=== PATIENT | female | born 1990 | race American Indian/Alaskan Native ===

== ENCOUNTER 2021-06-26 12:12 | Emergency (ER) | payer MEDICAID ==
[2021-06-26] MEDS ORDERED: ONDANSETRON 4 MG ODT TAB PO ONE (18:56)
[2021-06-26] MEDS ORDERED: IBUPROFEN 800 MG TAB PO ONE (18:57)
--- NOTE | 2021-06-26 19:02 | Emergency Department Report ---
ED Seizure HPI - General Chief Complaint: Seizure Stated Complaint: SEIZURE/CHEST PAIN Time Seen by Provider: 06/26/21 18:55 Source: patient, EMS Mode of arrival: Stretcher Limitations: No Limitations - History of Present Illness Initial Comments: Patient is a 31-year-old female with history of seizures brought in by EMS after having isolated seizure today. She also reports sensation of palpitations behind her sternum as well as generalized abdominal pain with an episode of nausea and vomiting. She is on Keppra which she states she takes as prescribed. - Related Data Allergies Allergy/AdvReac Type Severity Reaction Status Date / Time No Known Allergies Allergy Unverified 06/26/21 12:30 ED Review of Systems ROS: Stated complaint: SEIZURE/CHEST PAIN Other details as noted in HPI Comment: All other systems reviewed and negative Constitutional: denies: chills, fever Respiratory: denies: cough, shortness of breath, wheezing Cardiovascular: palpitations Endocrine: no symptoms reported Gastrointestinal: abdominal pain, nausea, vomiting Musculoskeletal: denies: back pain, joint swelling, arthralgia Skin: denies: rash, lesions Neurological: denies: headache, weakness, paresthesias Psychiatric: denies: anxiety, depression ED Physical Exam - General Limitations: No Limitations General appearance: alert, in no apparent distress - Head Head exam: Present: atraumatic, normocephalic - Respiratory Respiratory exam: Present: normal lung sounds bilaterally. Absent: respiratory distress - Cardiovascular Cardiovascular Exam: Present: regular rate, normal rhythm. Absent: systolic murmur, diastolic murmur, rubs, gallop - GI/Abdominal GI/Abdominal exam: Present: soft, normal bowel sounds. Absent: distended, tenderness - Rectal Rectal exam: Present: deferred - Neurological Exam Neurological exam: Present: alert, oriented X3, CN II-XII intact - Psychiatric Psychiatric exam: Present: normal affect, normal mood - Skin Skin exam: Present: warm, dry, intact, normal color ED Course Vital Signs 06/26/21 12:17 Temperature 98.4 F Pulse Rate 114 H Respiratory 18 Rate Blood Pressure 154/96 [Left] O2 Sat by Pulse 98 Oximetry ED Medical Decision Making - Lab Data Result diagrams: 06/26/21 19:08 06/26/21 19:08 - Medical Decision Making CBC, CMP, troponin and urinalysis grossly unremarkable. EKG normal with rate of 81. Incidental positive UPT. There is no protein in the urine. Blood pressure 150s over 90s. Eclampsia unlikely. Patient stable for discharge home with return precautions. Critical care attestation.: If time is entered above; I have spent that time in minutes in the direct care of this critically ill patient, excluding procedure time. ED Disposition Clinical Impression: Seizure, Palpitations, Generalized abdominal pain, Positive urine test Disposition: 01 HOME / SELF CARE / HOMELESS Is pt being admited?: No Does the pt Need Aspirin: No Condition: Stable Instructions: Seizure, Adult, [id number] Time of Disposition: 20:51
[2021-06-26 19:45] LABS: Alanine Aminotransferase 20 units/L (7-56); Albumin 4.3 g/dL (3.9-5); BUN/Creatinine Ratio 8; Bilirubin,Direct < 0.2 mg/dL (0-0.2); Blood Urea Nitrogen 5 mg/dL (7-17); Calcium 9.5 mg/dL (8.4-10.2); Hemolysis Index 0
[2021-06-26 19:47] LABS: Basophils % (Auto) 0.4 % (0.0-1.8); Eosinophils # (Auto) 0.3 K/mm3 (0.0-0.4); Hematocrit 30.7 % (30.3-42.9); Lymphocytes % (Auto) 31.7 % (13.4-35.0); Mean Corpuscular HGB Conc 33 % (30-34); Mean Corpuscular Volume 71 fl (79-97); Monocytes # (Auto) 0.6 K/mm3 (0.0-0.8); Monocytes % (Auto) 9.4 % (0.0-7.3); Platelet Count 248 K/mm3 (140-440)
[2021-06-26 19:55] LABS: Bilirubin,Urine NEG (Negative); Blood,Urine NEG (Negative); Color,Urine Yellow (Yellow); Mucus,Urine FEW /HPF; Protein,Urine <15 mg/dL mg/dL (Negative); RBC,Urine < 1.0 /HPF (0.0-6.0); Urobilinogen,Urine < 2.0 mg/dL (<2.0)
[2021-06-26 20:30] LABS: HCG Qualitative,Urine Positive (Negative)
[2021-06-26 21:18] VITALS: BP 152/94
--- NOTE | 2021-06-27 10:14 | Electrocardiograph Report ---
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
== END 2021-06-26 20:55 | disposition home or self-care (01) ==
LOC: ED 12:12
DX: R56.9 Unspecified convulsions (principal); R00.2 Palpitations; R10.84 Generalized abdominal pain; Z32.01 Encounter for pregnancy test, result positive
CPT/HCPCS: 36415; 80053; 80076; 81001; 81025; 84484; 85025; 93005; 99284; J3490; Q0162